=== PATIENT | male | born 1985 | race Caucasian/White ===

== ENCOUNTER 2017-02-14 06:28 | Emergency (ER) | payer BC, OTHER ==
[~2017-02-14] VITALS: Ht 177.8 cm; Wt 106.9 kg
[2017-02-14 06:36] VITALS: TEMP 36.6; Ht 177.8 cm; Wt 106.9 kg
[2017-02-14] MEDS ORDERED: NUTRCAP5 PO (06:38)
--- NOTE | 2017-02-14 06:59 | EMERGENCY ROOM VISIT NOTE ---
History Report prepared by Faby: Nabeel Whitaker Under the Supervision of: Dr. Hermelindo Knowles M.D. First contact with patient: 06:33 Chief Complaint: SYNCOPE (NEAR SYNCOPE) Stated Complaint: NEAR SYNCOPE Nursing Triage Summary: patient was working out this morning doing light cardio work when he began to feel nauseous and light headed. States he sat himself down before he passed out. EMS states he was very diaphoretic and weak upon arrival to scene. denies passing out. History of Present Illness The patient is a 31 year old white male without a past medical history who presents to the ED with a cc of an episode of near syncope beginning about 45 minutes ago. Positive dizziness, lightheaded, nausea, and weakness . Negative loss of consciousness, chest pain, shortness of breath, or abdominal pain. Earlier this morning, the patient was working out at a boot camp in an office space. This was his first time doing the cardio class and his first time working out for quite some time. He then began to feel very nauseated and lightheaded. He sat down, noting his vision to go black, but he could hear all of the people around him. He does not believe that he passed out. He denies any family history of cardiac disease, stroke, cancer, or diabetes. Source of History: patient Onset: about 45 minutes ago Position: other (Global) Symptom Intensity: 1 episode Quality: other (Near Syncope) Timing: resolved Associated Symptoms: + nausea, + weakness, No LOC, No chest pain, No SOB, No abdominal pain Note: During the episode, the patient was feeling lightheaded and dizzy. Review of Systems See HPI for pertinent positives and negatives. A total of ten systems were reviewed and were otherwise negative. Past Medical & Surgical Medical Problems: (1) No Known Active Medical Problems Family History Patient reports no known family medical history. Social History Smoking Status: Never Smoker Smokeless Tobacco Use: No Drug Use: none Occupation Status: employed Current/Historical Medications Scheduled Nutritional Supplements (Fruit & Vegetable Daily), 1 CAP PO DAILY Allergies Coded Allergies: No Known Allergies (Verified , 02/14/17) Physical Exam Vital Signs Date Time Temp Pulse Resp B/P (MAP) Pulse Ox O2 Delivery O2 Flow Rate FiO2 02/14/17 09:16 75 18 121/63 98 Room Air 02/14/17 09:08 77 18 122/78 98 02/14/17 06:37 84 02/14/17 06:36 36.6 73 18 127/70 98 Room Air Physical Exam GENERAL: Awake, alert, well-appearing, NAD HENT: Normocephalic, atraumatic. EYES: Normal conjunctiva. Sclera non-icteric. NECK: Supple. No nuchal rigidity. FROM. RESPIRATORY: CTAB, no rhonchi, wheezing, crackles CARDIAC: RRR, no MRG ABDOMEN: Soft, NTND, BS+ MSK: No chest wall TTP, no LE edema NEURO: GCS 15, CN 2-12 intact, moves all 4s on command SKIN: No rash or jaundice noted. Medical Decision & Procedures ER Provider Diagnostic Interpretation: Radiology results as stated below per my review and radiologist interpretation: CHEST ONE VIEW PORTABLE CLINICAL HISTORY: EVALUATE WEAKNESS dyspnea COMPARISON STUDY: No previous studies for comparison. FINDINGS: The bones soft tissues and hemidiaphragms are normal. The cardiomediastinal silhouette is normal. The lungs are clear. The pulmonary vasculature is normal. IMPRESSION: Negative chest. The above report was generated using voice recognition software. It may contain grammatical, syntax or spelling errors. Electronically signed by: Kev Muñoz M.D. 02/14/2017 7:17 AM Dictated Date/Time: 02/14/2017 7:17 AM Laboratory Results 02/14/17 07:40 Red Blood Count 5.42, Mean Corpuscular Volume 85.2, Mean Corpuscular Hemoglobin 31.0, Mean Corpuscular Hemoglobin Concent 36.4, Mean Platelet Volume 9.9, Neutrophils (%) (Auto) 64.1, Lymphocytes (%) (Auto) 24.8, Monocytes (%) (Auto) 9.0, Eosinophils (%) (Auto) 1.2, Basophils (%) (Auto) 0.3, Neutrophils # (Auto) 7.37, Lymphocytes # (Auto) 2.85, Monocytes # (Auto) 1.04, Eosinophils # (Auto) 0.14, Basophils # (Auto) 0.03 02/14/17 07:40 Test 02/14/17 07:40 02/14/17 08:00 White Blood Count 11.50 K/uL (4.8-10.8) Red Blood Count 5.42 M/uL (4.7-6.1) Hemoglobin 16.8 g/dL (14.0-18.0) Hematocrit 46.2 % (42-52) Mean Corpuscular Volume 85.2 fL (80-100) Mean Corpuscular Hemoglobin 31.0 pg (25-34) Mean Corpuscular Hemoglobin Concent 36.4 g/dl (32-36) Platelet Count 228 K/uL (130-400) Mean Platelet Volume 9.9 fL (7.4-10.4) Neutrophils (%) (Auto) 64.1 % Lymphocytes (%) (Auto) 24.8 % Monocytes (%) (Auto) 9.0 % Eosinophils (%) (Auto) 1.2 % Basophils (%) (Auto) 0.3 % Neutrophils # (Auto) 7.37 K/uL (1.4-6.5) Lymphocytes # (Auto) 2.85 K/uL (1.2-3.4) Monocytes # (Auto) 1.04 K/uL (0.11-0.59) Eosinophils # (Auto) 0.14 K/uL (0-0.5) Basophils # (Auto) 0.03 K/uL (0-0.2) RDW Standard Deviation 38.7 fL (36.4-46.3) RDW Coefficient of Variation 12.5 % (11.5-14.5) Immature Granulocyte % (Auto) 0.6 % Immature Granulocyte # (Auto) 0.07 K/uL (0.00-0.02) Prothrombin Time 10.1 SECONDS (9.0-12.0) Prothromb Time International Ratio 1.0 (0.9-1.1) Activated Partial Thromboplast Time 23.9 SECONDS (21.0-31.0) Partial Thromboplastin Ratio 0.9 Anion Gap 4.0 mmol/L (3-11) Est Creatinine Clear Calc Drug Dose 119.1 ml/min Estimated GFR () 103.1 Estimated GFR (Non- 89.0 BUN/Creatinine Ratio 18.4 (10-20) Calcium Level 9.3 mg/dl (8.5-10.1) Magnesium Level 2.4 mg/dl (1.8-2.4) Thyroid Stimulating Hormone (TSH) 1.130 uIu/ml (0.300-4.500) Urine Color YELLOW Urine Appearance CLEAR (CLEAR) Urine pH 5.5 (4.5-7.5) Urine Specific Esmond 1.025 (1.000-1.030) Urine Protein 1+ (NEG) Urine Glucose (UA) NEG (NEG) Urine Ketones NEG (NEG) Urine Occult Blood NEG (NEG) Urine Nitrite NEG (NEG) Urine Bilirubin NEG (NEG) Urine Urobilinogen NEG (NEG) Urine Leukocyte Esterase NEG (NEG) Urine WBC (Auto) 1-5 /hpf (0-5) Urine RBC (Auto) 0-4 /hpf (0-4) Urine Hyaline Casts (Auto) 10-30 /lpf (0-5) Urine Epithelial Cells (Auto) 10-20 /lpf (0-5) Urine Bacteria (Auto) NEG (NEG) Urine Pathogenic Casts 5-10 GRANULAR CASTS /lpf (0) Laboratory results reviewed by me ECG Indication: syncope (near) Rate (beats per minute): 78 Rhythm: normal sinus Findings: other (Normal intervals, normal axis, no STS changes or TWI) ED Course 0633: The patient was evaluated in room A3. A complete history and physical exam was performed. 0850: I reevaluated the patient. Discussed results and discharge instructions: He verbalized understanding and agreement. The patient is ready for discharge. Medical Decision The patient is a 31 year old white male without a past medical history who presents to the ED with a cc of an episode of near syncope beginning about 45 minutes ago. Positive dizziness, lightheaded, nausea, and weakness . Negative loss of consciousness, chest pain, shortness of breath, or abdominal pain. Differential diagnosis: Etiologies such as vasovagal event, infection, hypoglycemia, electrolyte abnormalities, cardiac sources, intracerebral event, toxicologic, neurologic, as well as others were entertained. Patient was seen and evaluated the bedside. Patient states that he was at a boot camp class this morning. Patient does not normally attends type of work out nor does he get up at this time. Patient states that in the middle the workout the patient did develop some nausea and lightheadedness. Patient states that his vision didn't put that he did not pass out. Patient denies any focal numbness tingling or weakness. Patient on exam is very well-appearing and has no focal neurologic deficit. Patient denies any family history of unexplained deaths or arrhythmias. She denies any chest pain or shortness of breath. Patient's EKG was nonischemic does not show any acute arrhythmia. Patient's chest x-ray clear. Patient blood work was fairly unremarkable. Patient was told that he needs to slowly integrate himself back into exercising as he does not normally do this often with regard to the cardio exercise. Patient was told to continue ample fluid hydration and to avoid things like alcohol and tobacco. Patient was deemed suitable for outpatient follow-up and treatment. Patient was advised to follow-up with his PCP which she stated he has a physical exam appointment later this month. Patient was given strict follow-up, discharge, and return precautions. All questions were answered. Patient was deemed suitable for outpatient follow-up at this time. Patient agreed with the plan of care and was safely discharged home. Medication Reconcilliation Current Medication List: was personally reviewed by me Blood Pressure Screening Patient's blood pressure: Normal blood pressure Blood pressure disposition: Did not require urgent referral Impression Primary Impression: Lightheadedness Additional Impression: Encounter for smoking cessation counseling Scribe Attestation The scribe's documentation has been prepared under my direction and personally reviewed by me in its entirety. I confirm that the note above accurately reflects all work, treatment, procedures, and medical decision making performed by me. Departure Information Dispostion Home / Self-Care Forms HOME CARE DOCUMENTATION FORM, IMPORTANT VISIT INFORMATION Patient Instructions ED Dizziness [facility], ED Smoking Cessation, [facility] Additional Instructions Please return to the emergency department if you have worsening or recurrent symptoms not amenable to at-home treatment. Please call for a follow-up appointment with her primary care physician. Please take your medications as prescribed. If you have other concerns and/or complaints please feel free to also call your primary care physician's office or return the ED for further evaluation, management, and treatment. You have been examined and treated today on an emergency basis only. This is not a substitute for, or an effort to provide, complete comprehensive medical care. It is impossible to recognize and treat all injuries or illnesses in a single emergency department visit. It is therefore important that you follow up closely with [facility], your PCP, and/or your specialist(s). Call as soon as possible for an appointment. Thank you for your time and consideration. I look forward to speaking with you again soon. Please don't hesitate to call us if you have any questions. Problem Qualifiers
--- NOTE | 2017-02-14 07:18 | DIAGNOSTIC IMAGING REPORT ---
CHEST ONE VIEW PORTABLE CLINICAL HISTORY: EVALUATE WEAKNESS dyspnea COMPARISON STUDY: No previous studies for comparison. FINDINGS: The bones soft tissues and hemidiaphragms are normal. The cardiomediastinal silhouette is normal. The lungs are clear. The pulmonary vasculature is normal. IMPRESSION: Negative chest. The above report was generated using voice recognition software. It may contain grammatical, syntax or spelling errors. Electronically signed by: Kev Muñoz M.D. 02/14/2017 7:17 AM Dictated Date/Time: 02/14/2017 7:17 AM
[2017-02-14 08:00] LABS: BASO % 0.3 %; BASO ABS # 0.03 K/uL (0-0.2); EOS % 1.2 %; EOS ABS # 0.14 K/uL (0-0.5); HEMATOCRIT 46.2 % (42-52); HEMOGLOBIN 16.8 g/dL (14.0-18.0); IG# 0.07 K/uL (0.00-0.02); LYMPH % 24.8 %; LYMPH ABS # 2.85 K/uL (1.2-3.4); MEAN CELL VOLUME 85.2 fL (80-100); MEAN CORPUSCULAR HGB CONC 36.4 g/dl (32-36); MEAN PLATELET VOLUME 9.9 fL (7.4-10.4); MONO ABS # 1.04 K/uL (0.11-0.59); NEUT % 64.1 %; NEUT ABS # 7.37 K/uL (1.4-6.5); PLATELET COUNT 228 K/uL (130-400); RED CELL DISTRIBUTION WIDTH CV 12.5 % (11.5-14.5); RED CELL DISTRIBUTION WIDTH SD 38.7 fL (36.4-46.3)
[2017-02-14 08:09] LABS: PTT PATIENT 23.9 SECONDS (21.0-31.0)
[2017-02-14 08:39] LABS: CALCIUM 9.3 mg/dl (8.5-10.1); CREATININE 1.1 mg/dl (0.60-1.40); POTASSIUM 3.9 mmol/L (3.5-5.1)
[2017-02-14 09:16] VITALS: BP 121/63; PULSE 75; O2SAT 98
== END 2017-02-14 09:09 | disposition home or self-care (01) ==
LOC: EDBD 06:28 → C.EDA 06:28
DX: R42 Dizziness and giddiness (principal); Z71.6 Tobacco abuse counseling